=== PATIENT | female | born 1945 | race Caucasian/White ===

== ENCOUNTER 2017-03-24 20:19 | Inpatient (IN) | payer MEDICARE, OTHER ==
[~2017-03-24] VITALS: Ht 152.4 cm; Wt 120.0 kg
[~2017-03-24 20:19] MED LIST: AMLO5TAB2 PO; CETI-158 PO; ESOM40CA PO; FLUT1DIS3 INH; LEVO50TA5 PO; LORA1TAB PO; LOSA100T6 PO; METF500T4 PO; MONT10TA9 PO; PARO30TA3 PO; RIVA20TA PO; SIMV40TA3 PO; ZOLP10TA5 PO
[2017-03-24] MEDS ORDERED: SODIUM CHLORIDE FLUSH 10ML SYR IVF ONE (21:00)
[2017-03-24] MEDS: ALBUTEROL/IPRATROPIUM 2.5MG/0.5MG, 3 ML NPPB SCH ×2 (21:03→21:04)
[2017-03-24] MEDS ORDERED: MIRA50TA PO (21:10)
[2017-03-24] MEDS ORDERED: GABA600T2 PO (21:10)
[2017-03-24] MEDS ORDERED: ROPI0.2537 PO (21:10)
[2017-03-24] MEDS ORDERED: VALS40TA2 PO (21:10)
[2017-03-24] MEDS ORDERED: POTA20TA89 PO (21:10)
[2017-03-24] MEDS ORDERED: ASCO500C2 PO (21:11)
[2017-03-24] MEDS ORDERED: CYAN10005 PO (21:11)
[2017-03-24 21:23] LABS: ASPARTATE AMINO TRANSFERASE 38 U/L (15-37); BLOOD UREA NITROGEN 19 mg/dL (7-18)
[2017-03-24 21:29] LABS: IS PT STATUS REG ER OR PRE ER? YES
[2017-03-24] MEDS ORDERED: NITROGLYCERIN 0.4 MG BOTTLE (25 TABS) SL PRN (23:00)
[2017-03-24] MEDS ORDERED: ACETAMINOPHEN 325 MG TABLET PO PRN (23:00)
[2017-03-24] MEDS ORDERED: TEMAZEPAM 15 MG CAPSULE PO PRN (23:00)
[2017-03-24] MEDS ORDERED: ONDANSETRON 2MG/ML, 2ML IVPush PRN (23:00)
[2017-03-24] MEDS ORDERED: ENALAPRILAT 1.25 MG/ML, 2ML IVPush PRN (23:00)
[2017-03-24] MEDS ORDERED: DOCUSATE 100 MG CAPSULE PO PRN (23:00)
[2017-03-24] MEDS ORDERED: morphine SULFATE 10 MG/ML, 1ML IVPush PRN (23:00)
[2017-03-24] MEDS ORDERED: methylPREDNISolone SOD SUCC 40 MG/ML ONE (23:27)
[2017-03-24] MEDS: methylPREDNISolone SOD SUCC 40 MG/ML IVPush SCH (23:34)
[2017-03-24 23:37] LABS: IS PT STATUS REG ER OR PRE ER? YES
[2017-03-24] MEDS ORDERED: DUONEB (23:45)
[2017-03-25] MEDS: RIVAROXABAN 20 MG TABLET PO SCH ×2 (01:04→21:46)
[2017-03-25] MEDS: SIMVASTATIN 20 MG TABLET PO SCH ×2 (01:04→21:46)
[2017-03-25] MEDS: LORazepam 1MG TABLET PO PRN ×2 (01:05→21:46)
[2017-03-25] MEDS: ROPINIROLE 0.25MG TABLET PO SCH ×2 (01:41→21:46)
[2017-03-25 02:03] VITALS: BP 182/80
[2017-03-25 06:00] LABS: IS PT STATUS REG ER OR PRE ER? NO
[2017-03-25] MEDS: methylPREDNISolone SOD SUCC 40 MG/ML IVPush SCH ×4 (06:02→23:20)
[2017-03-25] MEDS: LEVOTHYROXINE 50 MCG TABLET PO SCH (06:04)
[2017-03-25 06:14] LABS: ASPARTATE AMINO TRANSFERASE 33 U/L (15-37); BLOOD UREA NITROGEN 19 mg/dL (7-18)
[2017-03-25] MEDS: ALBUTEROL/IPRATROPIUM 2.5MG/0.5MG, 3 ML NPPB SCH ×4 (06:28→20:00)
[2017-03-25 06:39] LABS: TOTAL IRON BINDING CAPACITY 454 mcg/dL (250-450)
[2017-03-25 07:15] VITALS: BP 169/80
[2017-03-25] MEDS: MONTELUKAST 10 MG TABLET PO SCH (08:46)
[2017-03-25] MEDS: PAROXETINE 10 MG TABLET PO SCH (08:46)
[2017-03-25] MEDS: PANTOPROZOLE 40MG TABLET PO SCH (08:46)
[2017-03-25] MEDS: VALSARTAN 80 MG TABLET PO SCH (08:47)
[2017-03-25] MEDS: AMLODIPINE 5 MG TABLET PO SCH (08:47)
[2017-03-25] MEDS: AZITHROMYCIN 500 MG TABLET PO SCH (08:48)
[2017-03-25] MEDS ORDERED: ROPINIROLE 0.25MG TABLET PO SCH (09:00)
[2017-03-25] MEDS: INSULIN ASPART 100 UNITS/ML, PEN SQ-INSULIN SCH ×4 (09:54→21:47)
[2017-03-25] MEDS: FLUTICASONE/VILANTEROL 100-25MCG/INH INH SCH (09:54)
[2017-03-25 13:43] VITALS: BP 176/68
[2017-03-25 19:07] VITALS: BP_SYST 141; BP_SYST 174; BP_DIAS 60; BP_DIAS 73
[2017-03-26 02:00] VITALS: BP 175/79
[2017-03-26] MEDS: LEVOTHYROXINE 50 MCG TABLET PO SCH (05:33)
[2017-03-26] MEDS: methylPREDNISolone SOD SUCC 40 MG/ML IVPush SCH ×4 (05:33→23:24)
[2017-03-26] MEDS: ALBUTEROL/IPRATROPIUM 2.5MG/0.5MG, 3 ML NPPB SCH ×3 (06:59→20:00)
[2017-03-26 07:10] VITALS: BP 150/79
[2017-03-26] MEDS: FLUTICASONE/VILANTEROL 100-25MCG/INH INH SCH (08:13)
[2017-03-26] MEDS: INSULIN ASPART 100 UNITS/ML, PEN SQ-INSULIN SCH ×4 (08:13→21:49)
[2017-03-26] MEDS: VALSARTAN 80 MG TABLET PO SCH (08:15)
[2017-03-26] MEDS: AZITHROMYCIN 500 MG TABLET PO SCH (08:16)
[2017-03-26] MEDS: MONTELUKAST 10 MG TABLET PO SCH (08:16)
[2017-03-26] MEDS: PAROXETINE 10 MG TABLET PO SCH (08:16)
[2017-03-26] MEDS: PANTOPROZOLE 40MG TABLET PO SCH (08:17)
[2017-03-26] MEDS: AMLODIPINE 5 MG TABLET PO SCH (08:19)
[2017-03-26] MEDS: GLIMEPIRIDE 4 MG TABLET PO SCH ×2 (08:58→21:48)
[2017-03-26] MEDS: LORazepam 1MG TABLET PO PRN ×2 (08:58→21:47)
[2017-03-26] MEDS: FERROUS SULFATE 325 MG TABLET PO SCH ×3 (08:58→16:46)
[2017-03-26 13:00] VITALS: BP 163/83
[2017-03-26 19:02] VITALS: BP 189/76
[2017-03-26] MEDS: RIVAROXABAN 20 MG TABLET PO SCH (21:48)
[2017-03-26] MEDS: ROPINIROLE 0.25MG TABLET PO SCH (21:48)
[2017-03-26] MEDS: SIMVASTATIN 20 MG TABLET PO SCH (21:48)
[2017-03-27 02:30] VITALS: BP 170/89
[2017-03-27] MEDS: methylPREDNISolone SOD SUCC 40 MG/ML IVPush SCH (05:00)
[2017-03-27] MEDS: LEVOTHYROXINE 50 MCG TABLET PO SCH (06:21)
[2017-03-27] MEDS: ALBUTEROL/IPRATROPIUM 2.5MG/0.5MG, 3 ML NPPB SCH ×2 (06:55→11:10)
[2017-03-27 07:20] VITALS: BP 153/86
[2017-03-27] MEDS: FLUTICASONE/VILANTEROL 100-25MCG/INH INH SCH (08:00)
[2017-03-27] MEDS: INSULIN ASPART 100 UNITS/ML, PEN SQ-INSULIN SCH (08:01)
[2017-03-27] MEDS: PAROXETINE 10 MG TABLET PO SCH (08:02)
[2017-03-27] MEDS: FERROUS SULFATE 325 MG TABLET PO SCH (08:02)
[2017-03-27] MEDS: GLIMEPIRIDE 4 MG TABLET PO SCH (08:02)
[2017-03-27] MEDS: PANTOPROZOLE 40MG TABLET PO SCH (08:03)
[2017-03-27] MEDS: AMLODIPINE 5 MG TABLET PO SCH (08:03)
[2017-03-27] MEDS: VALSARTAN 80 MG TABLET PO SCH (08:03)
[2017-03-27] MEDS: MONTELUKAST 10 MG TABLET PO SCH (08:04)
[2017-03-27] MEDS: AZITHROMYCIN 500 MG TABLET PO SCH (08:05)
[2017-03-27] MEDS ORDERED: GLIM4TAB PO (08:47)
[2017-03-27] MEDS ORDERED: FERR325T20 PO (08:47)
[2017-03-27] MEDS ORDERED: PRED10TA PO (08:47)
[2017-03-27] MEDS ORDERED: LEVO50TA5 PO (09:00)
[2017-03-27] MEDS ORDERED: FLUTICASONE/VILANTEROL 200-25MCG/INH INH SCH (09:00)
== END 2017-03-27 12:28 | disposition home or self-care (01) | DRG 189 ==
LOC: ED 21:10 → EDIP 22:54 → 4EST 03-25 00:08
PROVIDERS: ADMIT Internal Medicine; ATTEND Internal Medicine
PROC: 5A09357 Assistance with Respiratory Ventilation, Less than 24 Consecutive Hours, Continuous Positive Airway Pressure (ICD-10-PCS; principal; 2017-03-26)
PROC: 5A09357 Assistance with Respiratory Ventilation, Less than 24 Consecutive Hours, Continuous Positive Airway Pressure (ICD-10-PCS; 2017-03-27)
DX: J96.20 Acute and chronic respiratory failure, unspecified whether with hypoxia or hypercapnia (principal); J44.1 Chronic obstructive pulmonary disease with (acute) exacerbation; Z68.43 Body mass index [BMI] 50.0-59.9, adult; D68.69 Other thrombophilia; E87.1 Hypo-osmolality and hyponatremia; J45.901 Unspecified asthma with (acute) exacerbation; R07.89 Other chest pain; D50.9 Iron deficiency anemia, unspecified; E03.9 Hypothyroidism, unspecified; E11.9 Type 2 diabetes mellitus without complications; E66.01 Morbid (severe) obesity due to excess calories; E78.5 Hyperlipidemia, unspecified; F32.9 Major depressive disorder, single episode, unspecified; R27.0 Ataxia, unspecified; T38.0X5A Adverse effect of glucocorticoids and synthetic analogues, initial encounter; H54.42 Blindness, left eye, normal vision right eye; I10 Essential (primary) hypertension; I48.2 Chronic atrial fibrillation; I69.393 Ataxia following cerebral infarction; Z79.01 Long term (current) use of anticoagulants; Z79.899 Other long term (current) drug therapy; Z99.81 Dependence on supplemental oxygen; Z88.0 Allergy status to penicillin; S29.011A Strain of muscle and tendon of front wall of thorax, initial encounter
CPT/HCPCS: 36415; 71010; 80053; 82607; 82728; 82962; 83036; 83540; 83550; 83605; 83735; 83880; 84100; 84443; 84484; 85025; 87040; 93005; 93306; 94640; 99285; J1815; J7620; J2920

== ENCOUNTER 2017-04-01 15:59 | Emergency (ER) | payer MEDICARE, OTHER ==
[~2017-04-01] VITALS: Ht 152.4 cm; Wt 104.4 kg
[~2017-04-01 15:59] MED LIST changes: +ASCO500C2 PO; +CYAN10005 PO; +DUONEB; +FERR325T20 PO; +GABA600T2 PO; +GLIM4TAB PO; +MIRA50TA PO; +POTA20TA89 PO; +PRED10TA PO; +ROPI0.2537 PO; +VALS40TA2 PO
[2017-04-01 16:46] LABS: ASPARTATE AMINO TRANSFERASE 19 U/L (15-37); BLOOD UREA NITROGEN 19 mg/dL (7-18)
[2017-04-01 19:00] VITALS: BP 158/68
== END 2017-04-01 19:02 | disposition home or self-care (01) ==
LOC: ED 16:52
DX: R35.8 Other polyuria (principal); D50.9 Iron deficiency anemia, unspecified; E11.65 Type 2 diabetes mellitus with hyperglycemia; I10 Essential (primary) hypertension; J44.9 Chronic obstructive pulmonary disease, unspecified; Z99.81 Dependence on supplemental oxygen; Z86.73 Personal history of transient ischemic attack (TIA), and cerebral infarction without residual deficits
CPT/HCPCS: 36415; 80053; 81003; 85025; 99284